=== PATIENT | female | born 1995 | race African-American/Black ===

== ENCOUNTER 2019-06-13 14:51 | Inpatient (IN) ==
[2019-06-13 15:51] LABS: URINE SOURCE CLEAN CATCH
[2019-06-13 15:57] LABS: BASO# 0.01 X1000 (0.0-0.2); BASO% 0.1 % (0.0-0.8); BILIRUBIN URINE NEGATIVE (NEGATIVE); BLOOD URINE MODERATE (NEGATIVE); COLOR ORANGE; GLUCOSE URINE NEGATIVE (NEGATIVE); HEMATOCRIT 37.3 % (37.0-47.0); HEMOGLOBIN 12.2 g/dL (12.0-16.0); IMM GRAN# 0.03 X1000 (0.0-0.04); IMM GRAN% 0.2 % (0.0-0.5); KETONE URINE 10 mg/dL (NEGATIVE); LEUKOCYTES URINE LARGE (NEGATIVE); LYMPH# 1.03 X1000 (1.2-3.4); LYMPH% 8.3 % (20.5-51.1); MCH 25.1 PG (27-31); MCHC 32.7 g/dL (33-37); MCV 76.7 FL (81-99); MONO# 0.91 X1000 (0.11-0.59); MONO% 7.3 % (1.7-9.3); MPV 12.6 FL (7.4-10.4); NEUT# 10.49 X1000 (1.4-6.5); NEUT% 84.1 % (42.2-75.2); NITRITE URINE POSITIVE (NEGATIVE); PLT 220 X1000 (130-400); PROTEIN URINE 200 mg/dL (NEGATIVE); RBC 4.86 XMIL (4.2-5.4); RDW 13.2 % (11.5-14.5); SP GRAVITY URINE 1.017; TURBIDITY URINE TURBID (CLEAR); UROBILINOGEN URINE 2 mg/dL (NORMAL); WBC 12.47 X1000 (4.8-10.8)
[2019-06-13] MEDS ORDERED: ZOFRAN IV ONE (15:58)
[2019-06-13] MEDS ORDERED: NS 1,000 ML IV ONE (15:58)
[2019-06-13 15:59] LABS: UR EPITHELIAL CELLS >10 /HPF (<10); URINE BACTERIA 4+ /HPF; URINE WBC TNTC /HPF (<10)
--- NOTE | 2019-06-13 16:02 | PROVIDER DOCUMENTATION ---
HPI-General Adult - General Chief Complaint: Nausea/Vomiting Stated Complaint: DEHYDRATED Time Seen by Provider: 06/13/19 15:46 Source: patient, family Allergies/Adverse Reactions: Patient Allergies Allergy/AdvReac Type Severity Reaction Status Date / Time No Known Allergies Allergy Verified 06/13/19 15:43 Home Medications: Home Medication List Medication Instructions Recorded Confirmed Last Taken Type NK [No Home Medications] 06/13/19 06/13/19 Unknown History - History of Present Illness -Gen Adult Nature of Presenting Problems: This is a 24yo female who presents with CC of back and abdominal pain. The onset was 2 days ago. Associated syptoms were nausea and vomiting and burning with urination. The patient also reports a fever as well as some diarrhea. The patient does report a history of UTI. Location of Pain/Injury: reports: abdomen, back Pain Radiation: reports: back, flank (L) Quality of Pain: reports: stabbing Onset/Duration: reports: 2 days ago Timing: reports: still present Associated Symptoms: reports: diarrhea, nausea, vomiting Review of Systems - Adult - REVIEW OF SYSTEMS - ADULT Constitutional: reports: fever Eyes: reports: no symptoms reported. denies: eye pain Ears, Nose, Mouth & Throat: reports: no symptoms reported. denies: throat pain Cardiovascular: reports: no symptoms reported. denies: chest pain Respiratory: reports: no symptoms reported Gastrointestinal: reports: abdominal pain, diarrhea, nausea, vomiting Genitourinary: reports: dysuria, flank pain Musculoskeletal: reports: muscle aches Integumentary: reports: no symptoms reported Neurological: reports: no symptoms reported Psychiatric: reports: no symptoms reported Endocrine: reports: no symptoms reported Hematologic/Lymphatic: reports: no symptoms reported Allergic/Immunologic: reports: no symptoms reported Past History - Adult - PAST MEDICAL HISTORY-ADULT Review of Records: reports: Old Records Reviewed Major Childhood Illnesses: reports: denies history Cardiovascular: reports: denies history Respiratory: reports: denies history Gastrointestinal: reports: other (constipation) Obstetrical/Gynecological: reports: denies history Genitourinary: reports: other (constipation) Musculoskeletal: reports: denies history Neurological: reports: denies history Endocrine/Immune: reports: denies history Other Conditions: reports: denies history - PRIOR SURGERIES/PROCEDURES Surgical/Procedure History: reports: other (wisdom teeth removed) - PRIOR HOSPITALIZATIONS Prior Hospitalizations: reports: none - IMMUNIZATION STATUS Childhood Immunizations: See Nurse Assessment Flu Vaccine: See Nurse Assessment - FAMILY HISTORY Family History: reviewed, not pertinent Physical Exam-General - CONSTITUTIONAL General Appearance: appears well, alert, no apparent distress - EYES Eyes: negative: conjuctival exudate - HEAD, EARS, NOSE, MOUTH & THROAT HENMT: normocephalic/atraumatic - RESPIRATORY Respiratory: lungs clear, normal breath sounds. negative: crackles, wheezing - CARDIOVASCULAR Cardiovascular: no edema, tachycardia - GASTROINTESTINAL (ABDOMEN) Abdominal Exam: soft, tenderness (LUQ and LLQ). negative: guarding, rebound - MUSCULOSKELETAL Back Exam: CVA tenderness (left) - SKIN Integumentary: normal color, warm/dry - NEUROLOGIC Neurologic: grossly normal - PSYCHIATRIC Psych/Mental Status: normal mood/affect, normal thought content, normal thought process Progress - PLAN OF CARE/RESULTS Progress/Plan/Lab Results: Vital Signs - 8 hr 06/13/19 15:03 Temperature 103.1 F H Pulse Rate 128 H Respiratory Rate 18 Blood Pressure 112/71 O2 Sat by Pulse Oximetry 99 Bedside Urine ED: Urine Bedside Start: 06/13/19 15:36 Freq: ORDERED Status: Active Protocol: Activity Type Activity Date Activity User E-Sign Co-Sign Detail Recorded Client Recorded Date Recorded By Document 06/13/19 15:44 [id number] 06/13/19 15:44 [id number] 06/13/19 15:44 Point of Care [Bedside Point of Care] -Lot # [id number] - Results Negative -Control Line Visible? Yes -Additional Comment expires Laboratory Results - last 24 hr 06/13/19 06/13/19 15:35 15:35 WBC 12.47 H RBC 4.86 Hgb 12.2 Hct 37.3 MCV 76.7 L MCH 25.1 L MCHC 32.7 L RDW Std Deviation 13.2 Plt Count 220 MPV 12.6 H Immature Gran % (Auto) 0.2 Neut % (Auto) 84.1 H Lymph % (Auto) 8.3 L [place] % (Auto) 7.3 Eos % (Auto) 0.0 Baso % (Auto) 0.1 Immature Gran # (Auto) 0.03 Neut # (Auto) 10.49 H Lymph # (Auto) 1.03 L [place] # (Auto) 0.91 H Eos # (Auto) 0.00 Baso # (Auto) 0.01 Urine Source CLEAN CATCH Urine Color ORANGE Urine Turbidity TURBID Urine pH 6.0 Ur Specific [place] 1.017 Urine Protein 200 A Ur Glucose (Stick) NEGATIVE Ur Ketones (Stick) 10 A Urine Blood MODERATE A Urine Nitrite POSITIVE A Urine Bilirubin NEGATIVE Urobilinogen Dipstick 2 A Urine Leukocytes LARGE A Urine WBC (Auto) TNTC A Urine RBC (Auto) 10-20 A U Epithel Cells (Auto) >10 A Urine Bacteria (Auto) 4+ Orders Category Date Time Status Cardiac Monitoring DIRECTED Care 06/13/19 15:31 Active ED: Urine Bedside ORDERED Care 06/13/19 15:36 Active IV Insertion ORDERED Care 06/13/19 15:31 Active Notify MD of + Sepsis Screen NOW Care 06/13/19 15:31 Active Notify Physician As Ordered Care 06/13/19 15:31 Active CHEST-1 VIEW [RAD] Stat Exams 06/13/19 15:31 Ordered BLOOD CULTURE [BLDCUL] Stat Lab 06/13/19 15:35 Received CBC WITH DIFF [HEME] Stat Lab 06/13/19 15:35 Completed CK PROFILE [SP CHEM] Stat Lab 06/13/19 15:35 Received COMPREHENSIVE METABOLIC PANEL [CHEM] Stat Lab 06/13/19 15:35 Received LACTATE, PLASMA [CHEM] Lab 06/13/19 18:45 Uncollected LACTATE, PLASMA [CHEM] Lab 06/13/19 21:45 Uncollected LACTATE, PLASMA [CHEM] Q3H Lab 06/13/19 15:35 Received LIPASE [CHEM] Stat Lab 06/13/19 15:57 Ordered PROTIME WITH INR [COAG] Stat Lab 06/13/19 15:35 Received PTT [COAG] Stat Lab 06/13/19 15:35 Received TROPONIN T Stat Lab 06/13/19 15:35 Received URINALYSIS W/POSS RFLX CULT [URINALYSIS] Stat Lab 06/13/19 15:35 Results URINE MANUAL MICROSCOPIC [URINALYSIS] Stat Lab 06/13/19 15:35 Results Ns 1000 ml IV Bolus X1 Med 06/13/19 15:58 Ordered 0.9% Sodium Chloride Inj [Ns] 1,000 ml IV 999 mls/hr Ondansetron [Zofran] Med 06/13/19 15:58 Once 4 mg IV NOW ONE Oxygen Device Stat Oth 06/13/19 15:31 Active Result Diagrams: 06/13/19 15:35 06/13/19 15:35 Departure - Departure Date of Disposition Decision: 06/13/19 Time of Disposition Decision: 19:49 DIAGNOSIS: Pyelonephritis Sepsis Qualifiers: Sepsis type: sepsis due to unspecified organism Sepsis acute organ dysfunction status: without acute organ dysfunction Qualified Code(s): A41.9 - Sepsis, unspecified organism Disposition: ADMITTED INPATIENT 09 Certified Medical Emergency: Emergent Condition: Fair Referrals and Follow-Ups: None,PCP [Primary Care Provider] - - Critical Care Note This patient required my direct & personal management of CC.: No Attestation - Physician/ DAMIÁN Attestation Patient care was provided by Advanced Practice Provider:: No The physician spent face to face time with patient:: Yes Advanced Practice Provider documentation review:: Supervising physician onsite and consulted in the evaluation and care of this patient. The physician did have a face to face encounter with the patient.
[2019-06-13 16:14] LABS: INR 1.18; PROTIME 15.2 Seconds (11.0-16.0)
[2019-06-13 16:16] LABS: URINE YEAST NONE SEEN
[2019-06-13 16:17] LABS: URINE CASTS NONE SEEN; URINE CRYSTALS NONE SEEN; URINE TRICHOMONAS PRESENT
[2019-06-13 16:32] LABS: AGAP 16; ALB/GLOB RATIO 1.5; ALBUMIN 4.6 g/dL (3.5-5.0); ALKALINE PHOSPHATASE 73 U/L (32-104); BUN 7 mg/dL (8-22); CALCIUM 8.9 mg/dL (8.8-10.2); CHLORIDE 101 mmol/L (98-107); CK PROFILE 97 U/L (24-173); COSMO 275; CREATININE 0.8 mg/dL (0.5-0.9); ESTIMATED GFR > 60; GLUCOSE 92 mg/dL (70-104); GOT 11 U/L (10-30); GPT 7 U/L (10-36); LIPASE 16 U/L (13-60); POTASSIUM 3.2 mmol/L (3.5-5.1); SODIUM 139 mmol/L (136-145); TCO2 22 mmol/L (25-35); TOTAL BILIRUBIN 1.05 mg/dL (0.20-1.00); TOTAL PROTEIN 7.6 g/dL (6.3-8.3)
--- NOTE | 2019-06-13 16:39 | Diag Imaging Result Doc PS360 ---
CHEST-1 VIEW - 06/13/2019 INDICATION: possible sepsis COMPARISON: 12/18/2017 FINDINGS: The lungs are normally expanded and clear. Heart size and mediastinal contours are normal. No pneumothorax or pleural effusion. IMPRESSION: Negative exam. Electronically signed by Zac Stevens 06/13/2019 4:37 PM
--- NOTE | 2019-06-13 17:35 | Diag Imaging Result Doc PS360 ---
CT ABD/PELVIS W/IV CONT ONLY - 06/13/2019 INDICATION: abdominal pain and vomiting COMPARISON: 05/29/2018 FINDINGS: The lung bases are clear and the heart size is normal. Stable gastric sleeve surgical changes. There is heterogeneous hypoenhancement and surrounding inflammation at the left kidney indicating pyelonephritis. The spleen size is borderline measuring 12.5 x 4.2 cm. There are cholecystectomy clips. Other abdominal organs are normal. No bowel obstruction or inflammation. Normal appendix. Small amount of pelvic free fluid. There is wall thickening of the urinary bladder indicating cystitis. There is a small collapsing right ovarian cyst measuring about 1.3 cm. Uterus and rectum are normal. Bones are intact. IMPRESSION: 1. Cystitis. 2. Left pyelonephritis. 3. Collapsing right ovarian cyst. Trace pelvic free fluid. This exam was performed using automated exposure control, adjustment of mA or kV according to patient size, and/or use of iterative reconstruction technique Electronically signed by Zac Stevens 06/13/2019 5:32 PM
[2019-06-13] MEDS ORDERED: MERREM 1 GM in NS 50 ML IV ONE (17:48)
[2019-06-13] MEDS ORDERED: VANCOMYCIN 1 GM/NS 1 GM/250 ML IVPB IV ONE (17:48)
[2019-06-13] MEDS ORDERED: KLOR-CON POWDER PACKET PO ONE (17:56)
[2019-06-13] MEDS ORDERED: MORPHINE IV ONE (17:56)
[2019-06-13] MEDS ORDERED: VANCOMYCIN IV PER PHARMACY MISC SCH (18:00)
[2019-06-13] MEDS ORDERED: VANCOMYCIN 850 MG in NS 250 ML IV ONE (19:00)
[2019-06-13] MEDS ORDERED: NS 1,000 ML IV SCH (19:45)
[2019-06-13] MEDS ORDERED: MORPHINE IV PRN (19:46)
[2019-06-13] MEDS ORDERED: ZOFRAN IV PRN (19:46)
[2019-06-13] MEDS: POTASSIUM CHLORIDE 20 MEQ in NS 1,000 ML IV SCH (20:38)
[2019-06-13] MEDS: LOVENOX SUBQ SCH (20:38)
[2019-06-13] MEDS: NORCO-7.5 PO PRN (20:38)
--- NOTE | 2019-06-13 20:50 | HISTORY AND PHYSICAL ---
CHIEF COMPLAINT: Left flank pain and fever. HISTORY OF PRESENT ILLNESS: A 24-year-old female with a past medical history of pancreatitis, cholelithiasis status post cholecystectomy 1 year ago, morbid obesity, status post gastric sleeve on 05/20/2018, presented to the emergency department with chief complaint of left flank pain, dysuria, nausea and fever. As per the patient, she started having some left flank pain last , 4 days ago. This pain got worse on Friday. Yesterday, she also started having fever, chills, nausea and vomiting. Also she had an episode of diarrhea today in the morning. She tried to take Tylenol to control the pain and the fever. Given her current condition, she decided to come to the emergency department. Laboratory showed a WBC of 12.4, hemoglobin 12.2, sodium 139, potassium 3.2. Normal kidney function and urinalysis with positive nitrites, large leukocyte count, and bacteria 4+. CT scan of the abdomen showed cystitis, left pyelonephritis, collapsing right ovarian cyst, and trace pelvic free fluid. Given her current condition, this patient will be admitted for antibiotic treatment, IV fluids, and pain control. REVIEW OF SYSTEMS: All of the 14-point review of systems were reviewed and all of them negative except as per HPI. SOCIAL HISTORY: She denies alcohol, drugs and tobacco abuse. FAMILY HISTORY: Noncontributory. PAST MEDICAL HISTORY: Positive for pancreatitis, gallstones, status post cholecystectomy 1 year ago, gastric sleeve on 05/20/2018 due to obesity. As per the patient, she has been losing weight about 100 pounds. PAST SURGICAL HISTORY: Cholecystectomy 1 year ago and gastric sleeve on 05/20/2018. SOCIAL HISTORY: She works as a caregiver. ALLERGIES: No known allergies. BLOOD TRANSFUSIONS: None. MEDICATIONS: None. PHYSICAL EXAMINATION: VITAL SIGNS: Temperature 103.1, pulse 101, respiratory rate 18, blood pressure 112/75, oxygen saturation 99 on room air. HEENT: Head normocephalic. No trauma. PERRLA. NECK: Supple. No JVD. No masses. Central trachea. CHEST: Clear to auscultation. No wheezing. No rales. ABDOMEN: Soft. Tenderness to palpation at the level of the left flank area and CVA tenderness as well. No signs of peritoneal irritation. EXTREMITIES: No edema, no clubbing, no cyanosis. NEUROLOGICAL: The patient is alert. She is oriented x3. No focal deficits. LABORATORY: WBCs 12.4, hemoglobin 12.2, hematocrit 37.3, platelet count 220,000. Sodium 139, potassium 3.2, chloride 101, bicarbonate 22, BUN 7, creatinine 0.8, glucose 92, calcium 8.9, total bilirubin 1, AST 11, ALT 7, alkaline phosphatase 73. Troponins negative x1. Albumin 4.6, lipase 16, plasma lactate 0.7. Urinalysis positive for blood, nitrite, white blood cells, and 4+ bacteria. ASSESSMENT AND PLAN: 1. Sepsis due to urinary tract infection/urosepsis. This patient has been placed on broad- spectrum antibiotics. She received already vancomycin and meropenem in the emergency department. I will continue with vancomycin, and I will add Zosyn. I will start this patient also on normal saline, and I will add potassium to it due to hypokalemia. 2. Left pyelonephritis. I will continue with broad spectrum antibiotics. Blood culture and urine cultures so far negative. It has been collected. 3. History of pancreatitis. Lipase level is normal. No pancreatitis at this time. 4. Microcytosis. I will order anemia workup. 5. Nausea and vomiting. We will continue with nausea medication and IV fluids. I will place the patient on a liquid diet if she tolerates that. 6. Further recommendations pending hospital course. cc: Scottie Villalta MD
[2019-06-13] MEDS ORDERED: ZOSYN 4.5 GM in NS 100 ML IV ONE (21:00)
--- NOTE | 2019-06-13 21:22 | Diag Imaging Result Doc PS360 ---
US RENAL 2 (RETROPER) COMPLETE - 06/13/2019 INDICATION: brad/arf TECHNIQUE: COMPARISON: CT abdomen and pelvis with intravenous contrast four hours earlier FINDINGS: The kidneys and urinary bladder are normal. Renal sizes are normal. IMPRESSION: No change from prior. Electronically signed by Zac Stevens 06/13/2019 9:19 PM
[2019-06-14] MEDS: POTASSIUM CHLORIDE 20 MEQ in NS 1,000 ML IV SCH ×2 (04:56→12:31)
[2019-06-14] MEDS: ZOSYN 4.5 GM in NS 100 ML IV SCH ×3 (06:01→18:31)
[2019-06-14] MEDS: NORCO-7.5 PO PRN ×2 (07:23→19:42)
[2019-06-14 07:46] LABS: BASO# 0.01 X1000 (0.0-0.2); BASO% 0.1 % (0.0-0.8); EOS# 0.01 X1000 (0.0-0.7); EOS% 0.1 % (0.0-10.0); HEMATOCRIT 33.4 % (37.0-47.0); HEMOGLOBIN 10.9 g/dL (12.0-16.0); IMM GRAN# 0.02 X1000 (0.0-0.04); IMM GRAN% 0.2 % (0.0-0.5); LYMPH# 1.19 X1000 (1.2-3.4); LYMPH% 10.8 % (20.5-51.1); MCH 25.5 PG (27-31); MCHC 32.6 g/dL (33-37); MONO# 0.93 X1000 (0.11-0.59); MONO% 8.4 % (1.7-9.3); MPV 12.3 FL (7.4-10.4); NEUT# 8.88 X1000 (1.4-6.5); NEUT% 80.4 % (42.2-75.2); PLT 163 X1000 (130-400); RBC 4.28 XMIL (4.2-5.4); RDW 13.3 % (11.5-14.5); WBC 11.04 X1000 (4.8-10.8)
[2019-06-14 08:03] LABS: AGAP 12; ALBUMIN 3.3 g/dL (3.5-5.0); ALKALINE PHOSPHATASE 64 U/L (32-104); BUN 5 mg/dL (8-22); CALCIUM 8.5 mg/dL (8.8-10.2); CHLORIDE 105 mmol/L (98-107); COSMO 274; CREATININE 0.7 mg/dL (0.5-0.9); ESTIMATED GFR > 60; GLUCOSE 88 mg/dL (70-104); GOT 8 U/L (10-30); GPT 5 U/L (10-36); IRON SATURATION 7 %; MAGNESIUM 1.9 mg/dL (1.5-2.7); POTASSIUM 3.1 mmol/L (3.5-5.1); SODIUM 139 mmol/L (136-145); TCO2 22 mmol/L (25-35); TIBC 175 ug/dL; TOTAL BILIRUBIN 0.66 mg/dL (0.20-1.00); TOTAL IRON 13 ug/dL (49-151); TOTAL PROTEIN 6.5 g/dL (6.3-8.3); UNBOUND IRON 162 ug/dL (112-346)
[2019-06-14 08:27] LABS: FERRITIN 313 ng/mL (13-150)
[2019-06-14] MEDS: KLOR-CON PO SCH ×2 (18:45→22:48)
[2019-06-14] MEDS ORDERED: VANCOMYCIN 1,850 MG in NS 500 ML IV SCH (19:00)
[2019-06-14] MEDS: LOVENOX SUBQ SCH (21:20)
--- NOTE | 2019-06-14 22:55 | PROGRESS NOTE ---
DATE: 06/14/2019 INTERVAL HISTORY: No acute events overnight. Patient continues to have left abdominal pain. She continues to be nauseous. She has poor oral intake. She is not feeling any better than she did yesterday. We discussed about pyelonephritis, IV antibiotics. The patient's mother is at bedside. Currently vitals temperature 99.1 degrees, pulse 79, respiratory rate 14, blood pressure 134/86, she is saturating 100% on room air. PHYSICAL EXAMINATION: General: Patient appears sad. She has trouble moving inside the bed because of pain. Oral cavity is dry. Air entry bilaterally equal. No wheeze, rhonchi, crackles. S1, S2 normal. No murmur or gallop. Abdomen: Soft. There is tenderness in left upper and left lower quadrant. Active bowel sounds. No lower extremity edema. She is alert and oriented x3. LABS: Suggestive of leukocytosis, microcytic anemia, normal platelet count, hypokalemia which is currently being repleted, her magnesium was normal. Her ferritin was high. Blood culture are growing gram-negative conor and so is the urine culture. ASSESSMENT AND PLAN: 1. Gram-negative sepsis due to acute pyelonephritis and acute cystitis. Continue intravenous Zosyn. Follow up final blood culture, urine culture results and repeat blood culture. I advised her to set up an appointment with Urology as outpatient since she states she has been having multiple UTIs. 2. Hypokalemia currently being repleted. Follow up with [facility]. 3. Microcytic anemia. Her ferritin level is high. Her total iron-binding capacity is normal. Her oral saturation is low so she does have a degree of iron deficiency. I will start her on iron as well as multivitamin. 4. Others, continue intravenous fluids, intravenous antiemetic and intravenous morphine as needed. DISPOSITION: I will continue monitor patient inside the hospital. Plan of care discussed with her and her mother at bedside. Their questions have been answered. cc: Arcenio Navas MD
[2019-06-15] MEDS: ZOSYN 4.5 GM in NS 100 ML IV SCH ×4 (00:07→17:31)
[2019-06-15 07:23] LABS: BASO# 0.01 X1000 (0.0-0.2); BASO% 0.1 % (0.0-0.8); EOS# 0.05 X1000 (0.0-0.7); EOS% 0.6 % (0.0-10.0); HEMATOCRIT 34.3 % (37.0-47.0); HEMOGLOBIN 10.9 g/dL (12.0-16.0); LYMPH# 0.97 X1000 (1.2-3.4); LYMPH% 11.6 % (20.5-51.1); MCH 24.7 PG (27-31); MCHC 31.8 g/dL (33-37); MCV 77.6 FL (81-99); MONO# 0.77 X1000 (0.11-0.59); MONO% 9.2 % (1.7-9.3); MPV 11.6 FL (7.4-10.4); NEUT# 6.59 X1000 (1.4-6.5); NEUT% 78.5 % (42.2-75.2); PLT 195 X1000 (130-400); RBC 4.42 XMIL (4.2-5.4); RDW 13.3 % (11.5-14.5); WBC 8.39 X1000 (4.8-10.8)
[2019-06-15 07:42] LABS: AGAP 14; BUN 4 mg/dL (8-22); CALCIUM 8.9 mg/dL (8.8-10.2); CHLORIDE 103 mmol/L (98-107); COSMO 272; CREATININE 0.5 mg/dL (0.5-0.9); ESTIMATED GFR > 60; GLUCOSE 88 mg/dL (70-104); MAGNESIUM 1.8 mg/dL (1.5-2.7); POTASSIUM 3.7 mmol/L (3.5-5.1); SODIUM 138 mmol/L (136-145); TCO2 21 mmol/L (25-35)
[2019-06-15] MEDS: ICAR-C PO SCH (09:49)
[2019-06-15] MEDS: THERA M PLUS PO SCH (10:06)
--- NOTE | 2019-06-15 15:18 | PROGRESS NOTE ---
DATE: 06/15/2019 INTERVAL HISTORY: No acute events overnight. She is feeling slightly better than yesterday, however, she is still complaining of left lower quadrant pain. We discussed about continuing intravenous antibiotics, advancing diet. I answered all of her questions. VITAL SIGNS: Temperature: She has been afebrile, temperature of 98.6. She did have a temperature of 100 yesterday evening though. Pulse 79, respiratory rate 18, blood pressure 105/60, saturating 100% on room air. PHYSICAL EXAMINATION: General: She does not appear in any acute distress. HEENT: Oral cavity is moist. Lungs: Air entry bilaterally equal. No wheeze, rhonchi, or crackles. Cardiovascular: S1, S2 normal, not tachycardic. No murmur, rub, or gallop. Abdomen: Soft, nontender in most part except left lower quadrant where there is tenderness without guarding or rigidity. No lower extremity edema. Neurologic: She is alert and oriented x3. She also has flank tenderness. LABORATORY: Suggestive of resolution of leukocytosis, microcytic anemia, normal platelet count. BMP is unremarkable. Her low potassium is currently being repleted and she is iron deficient with saturation of 7%, her ferritin is 313 which could happen in case of acute infection. Her folate and B12 levels are also slightly on lower side. MICROBIOLOGY: Repeat blood culture in Lab. First blood culture have not resulted in final results yet. Urine culture is growing Escherichia coli which is sensitive to Zosyn among other antibiotics. ASSESSMENT AND PLAN: 1. Gram-negative sepsis due to acute left pyelonephritis and acute cystitis. Continue intravenous Zosyn for Escherichia coli pyelonephritis and follow up final blood culture results and taper antibiotics down. 2. Hypokalemia currently being repleted. 3. Microcytic anemia due to iron deficiency as well as folate deficiency. Continue iron and multivitamin tablets. 4. Others, stopped intravenous fluids. Will start her on gastrointestinal soft diet. Continue intravenous morphine as needed for abdominal pain. DISPOSITION: I will continue to manage the patient inside the hospital and as await negative blood cultures. Plan of care discussed with her and her mother at bedside. Their questions have been answered. cc: Arcenio Navas MD
[2019-06-15] MEDS: NORCO-7.5 PO PRN ×2 (16:32→22:55)
[2019-06-15] MEDS: LOVENOX SUBQ SCH (20:48)
[2019-06-16] MEDS: ZOSYN 4.5 GM in NS 100 ML IV SCH ×2 (00:11→05:34)
[2019-06-16 07:39] LABS: AGAP 14; BUN 5 mg/dL (8-22); CALCIUM 8.9 mg/dL (8.8-10.2); CHLORIDE 106 mmol/L (98-107); COSMO 281; CREATININE 0.6 mg/dL (0.5-0.9); ESTIMATED GFR > 60; GLUCOSE 82 mg/dL (70-104); POTASSIUM 3.4 mmol/L (3.5-5.1); SODIUM 143 mmol/L (136-145); TCO2 23 mmol/L (25-35)
[2019-06-16] MEDS: ICAR-C PO SCH (09:01)
[2019-06-16] MEDS: THERA M PLUS PO SCH (09:01)
[2019-06-16] MEDS: LEVAQUIN 750 MG/D5W 750 MG/150 ML IVPB IV SCH (09:04)
[2019-06-16] MEDS: SENOKOT PO SCH (15:01)
[2019-06-16] MEDS: KLOR-CON PO SCH ×2 (15:01→19:34)
--- NOTE | 2019-06-16 15:10 | PROGRESS NOTE ---
DATE: 06/16/2019 INTERVAL HISTORY: No acute events overnight. She has been feeling better. Her oral intake has improved. She has not had a bowel movement yet, so I am going to start her on senna. She denies any nausea or vomiting. We discussed about positive blood culture, Escherichia coli. I discussed about antibiotic plan. VITALS: Temperature 97.9 degrees, pulse 69, respiratory rate 14, blood pressure 100/50, saturating 98% on room air. PHYSICAL EXAMINATION: Not in any acute distress. Oral cavity is moist. Lungs: Air entry bilaterally equal. No wheeze, rales, or crackles. Cardiovascular: S1, S2 normal. No murmur, rub, or gallop. Abdomen: Obese, soft, nontender. Active bowel sounds. No lower extremity edema. She is alert and oriented x3. LABS: No CBC today. BMP suggestive of hypokalemia, which is currently being repleted. Her magnesium was normal yesterday. Repeat blood cultures drawn yesterday have been in the lab. ASSESSMENT AND PLAN: 1. Escherichia coli sepsis due to acute left pyelonephritis and acute cystitis due to Escherichia coli. Change intravenous antibiotics to intravenous levofloxacin and follow up repeat blood cultures drawn on June 15. 2. Hypokalemia, is currently being repleted. 3. Microcytic anemia due to iron deficiency as well as folic acid deficiency. Continue iron and multivitamin tablets. 4. Others. Give the patient senna for constipation and enoxaparin for deep venous thrombosis prophylaxis. 5. Disposition. I am awaiting return of blood cultures. If they are negative, my plan will be to discharge her home on oral Levaquin for a total of 14 days. Plan of care discussed with the patient. Her questions have been answered. cc: Arcenio Navas MD
[2019-06-16] MEDS: LOVENOX SUBQ SCH (20:55)
[2019-06-17 07:24] LABS: BASO# 0.02 X1000 (0.0-0.2); BASO% 0.3 % (0.0-0.8); EOS# 0.04 X1000 (0.0-0.7); EOS% 0.6 % (0.0-10.0); HEMATOCRIT 34.5 % (37.0-47.0); HEMOGLOBIN 11.1 g/dL (12.0-16.0); LYMPH# 2.04 X1000 (1.2-3.4); LYMPH% 32.2 % (20.5-51.1); MCH 25.3 PG (27-31); MCHC 32.2 g/dL (33-37); MCV 78.8 FL (81-99); MONO# 0.55 X1000 (0.11-0.59); MONO% 8.7 % (1.7-9.3); MPV 11.4 FL (7.4-10.4); NEUT# 3.68 X1000 (1.4-6.5); NEUT% 58.2 % (42.2-75.2); PLT 277 X1000 (130-400); RBC 4.38 XMIL (4.2-5.4); RDW 13.6 % (11.5-14.5); WBC 6.33 X1000 (4.8-10.8)
[2019-06-17 07:51] VITALS: BP 104/54
[2019-06-17] MEDS: THERA M PLUS PO SCH (09:31)
[2019-06-17] MEDS: SENOKOT PO SCH (09:31)
[2019-06-17] MEDS: ICAR-C PO SCH (09:31)
[2019-06-17] MEDS: LEVAQUIN 750 MG/D5W 750 MG/150 ML IVPB IV SCH (09:31)
--- NOTE | 2019-06-18 04:33 | DISCHARGE SUMMARY ---
ADMISSION DATE: 06/13/2019 DISCHARGE DATE: 06/17/2019 DISCHARGE DISPOSITION: Home. DISCHARGE CONDITION: Hemodynamically stable. Her blood cultures have been negative. She is tolerating levofloxacin well. I provided detailed instructions about following up with regular physician, continue to take home iron multivitamin tablet. Recheck her hemoglobin within 4 weeks after discussion with her regular doctor. I also discussed with her about continuing antibiotics. Education regarding Trichomonas was provided to her by the nursing team. DISCHARGE DIAGNOSES: 1. Escherichia coli sepsis. 2. Acute cystitis. 3. Acute left pyelonephritis leading to left flank pain. 4. Hypokalemia. 5. Iron deficiency and folate deficiency microcytic anemia. 6. Constipation. OTHER DIAGNOSES: 1. History of recurrent urinary tract infection. 2. History of morbid obesity status post gastric sleeve operation. 3. History of pancreatitis. 4. History of cholecystectomy. DISCHARGE MEDICATIONS: Levofloxacin 750 mg daily 12 tablets have been provided. She was instructed to resume her home multivitamins with iron. VITALS AT TIME OF DISCHARGE: Temperature 98.6 degrees, pulse 68, respiratory 19, blood pressure 104/54, and saturating 99% room air. PHYSICAL EXAMINATION: General: Obese. Not in acute distress. HEENT: Oral cavity is moist. Lungs: Air entry bilaterally equal. No wheeze or rhonchi present. Heart: Normal. No murmur or gallop. Abdomen: Soft, nontender. Active bowel sounds. She has mild tenderness on the left flank, which is significantly improved than on presentation. Active bowel sounds. Extremities: No lower extremity edema. Neurologic: She is alert and oriented x3. SIGNIFICANT LABS DURING HOSPITAL ADMISSION ON DISCHARGE: WBC was 92076 which improved to 6000. Her hemoglobin is 11.1 and platelets 277,000. Her potassium was 3.4 which was repleted. BUN of 5 and creatinine of 0.6. Urinalysis has acute too numerous to count WBC on admission. Urine test was positive. Urine Trichomonas was positive. MICROBIOLOGY: Blood culture drawn on 06/13/2019 was positive for E. Coli which was sensitive to levofloxacin. Blood culture drawn on 06/15/2019 did not have any growth. Urine culture drawn on 06/13 has E. Coli sensitive to levofloxacin. SIGNIFICANT IMAGING DURING HOSPITAL ADMISSION: Chest x-ray on admission did not have any acute cardiopulmonary process. Abdomen and pelvis CT had thickening of urine bladder wall with cystitis, left pyelonephritis, and collapsing right ovarian cyst. Trace pelvic free fluid. Renal ultrasound on admission showed both kidneys and urinary bladder are normal. HOSPITAL COURSE SUMMARY: Ms. Pineda is a 24 year old lady who presented on 06/13/2019 with chief complaint of left flank pain and fever of about 4 days duration. The symptoms of flank pain and fever progressively worsened to an extent that the day prior to presentation she was having chills, nausea, vomiting, and an episode of diarrhea, which did not get better with Tylenol so she decided to come to the emergency room. In the emergency room, [place] [address]. Normal kidney function and fever of [address] scan had detected left pyelonephritis so she was admitted for further management. She was treated with intravenous fluids and intravenous antibiotics. On return of blood cultures, the antibiotics were changed to intravenous levofloxacin which she was tolerated well. Her repeat blood cultures came back negative. She was deemed an appropriate candidate for discharge. At the time of discharge, more than 30 minutes were spent in preparing this discharge, and she was given detailed discharge instructions. All of her questions were answered. cc: Arcenio Navas MD
== END 2019-06-17 11:56 | disposition home or self-care (01) | DRG 872 ==
LOC: ED 14:51 → 3N 21:57 → SUATTDRO 21:57
PROVIDERS: ATTEND Internal Medicine